=== PATIENT | male | born 1985 | race Caucasian/White ===

== ENCOUNTER 2021-04-03 11:10 | Emergency (ER) | payer OTHER ==
[~2021-04-03] VITALS: Ht 190.5 cm; Wt 105.7 kg
[2021-04-03] MEDS ORDERED: ONDANSETRON PF 4 MG/2 ML VIAL. IVP ONE (12:00)
[2021-04-03] MEDS ORDERED: MORPHINE SULFATE 4 MG/ML INJ. IVP ONE (12:00)
[2021-04-03] MEDS ORDERED: IV NORMAL SALINE 1000ML BAG 1,000 ML IV ONE (12:00)
[2021-04-03 12:24] LABS: BASO # 0.1 x10^3/uL (0.0-0.2); BASO % 1 % (0-3); EOS % 0 % (0-3); HEMATOCRIT 46.8 % (39.0-53.0); LYMPH # 1.3 x10^3/uL (1.0-4.8); LYMPH % 20 % (24-48); MEAN CORPUSCULAR HEMOGLOBIN 31 pg (25-35); MEAN CORPUSCULAR HGB CONC 34 g/dL (31-37); MEAN CORPUSCULAR VOLUME 90 fL (79-100); MONO # 0.4 x10^3/uL (0.0-1.1); MONO % 6 % (0-9); NEUT # 4.7 x10^3/uL (1.8-7.7); NEUT % 73 % (31-73); PLATELET COUNT 265 x10^3/uL (140-400); RED BLOOD COUNT 5.19 x10^6/uL (4.30-5.70); WHITE BLOOD COUNT 6.4 x10^3/uL (4.0-11.0)
[2021-04-03 12:35] LABS: CALCIUM 9.2 mg/dL (8.5-10.1); CREATININE 1.1 mg/dL (0.7-1.3); GFR 75.3; POTASSIUM 3.5 mmol/L (3.5-5.1)
[2021-04-03 12:40] LABS: ALBUMIN 4.3 g/dL (3.4-5.0); ALBUMIN/GLOBULIN RATIO 1.1 (1.0-1.7); MAGNESIUM 2.3 mg/dL (1.8-2.4); TOTAL BILIRUBIN 0.4 mg/dL (0.2-1.0); TOTAL PROTEIN 8.1 g/dL (6.4-8.2)
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
--- NOTE | 2021-04-03 14:27 | RAD ---
Single view of the chest. 04/03/2021 1:55 PM Indication: Reason: chest pain Comparison: None Findings: There is no focal consolidation. There is no pleural effusion or pneumothorax. The cardiome diastinal silhouette and pulmonary vasculature are within normal limits. No acute osseous abnormaliti es are seen. Impression: No evidence of acute cardiopulmonary process. Electronically signed by: Ronan Akins MD (04/03/2021 2:25 PM) [id number]
[2021-04-03] MEDS ORDERED: KETOROLAC 30 MG/ML VIAL. IVP ONE (14:30)
[2021-04-03 15:26] VITALS: BP 144/79
--- NOTE | 2021-04-03 18:21 | EKG ---
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
== END 2021-04-03 15:32 | disposition home or self-care (01) ==
LOC: ER 11:10
DX: R07.89 Other chest pain (principal); F41.9 Anxiety disorder, unspecified; R19.7 Diarrhea, unspecified; R50.9 Fever, unspecified; Z72.0 Tobacco use; F43.10 Post-traumatic stress disorder, unspecified; Z88.1 Allergy status to other antibiotic agents; Z88.5 Allergy status to narcotic agent
CPT/HCPCS: 36415; 71045; 80053; 83735; 83880; 84484; 85025; 93005; 96361; 96374; 96375; 99285; J1885; J2060; J2405; J7030

== ENCOUNTER 2021-06-23 06:58 | Emergency (ER) | payer OTHER ==
[~2021-06-23] VITALS: Ht 190.5 cm; Wt 120.0 kg
[2021-06-23] MEDS ORDERED: ONDANSETRON PF 4 MG/2 ML VIAL. IVP ONE (07:30)
[2021-06-23] MEDS ORDERED: KETOROLAC 30 MG/ML VIAL. IV ONE (07:30)
[2021-06-23] MEDS ORDERED: FAMOTIDINE 20 MG/2 ML VIAL IVP ONE (07:30)
[2021-06-23] MEDS ORDERED: ASPIRIN CHEWABLE 81 MG TABLET. PO ONE (07:30)
[2021-06-23 07:55] LABS: BASO # 0.1 x10^3/uL (0.0-0.2); BASO % 1 % (0-3); EOS # 0.1 x10^3/uL (0.0-0.7); EOS % 2 % (0-3); HEMATOCRIT 42.3 % (39.0-53.0); HEMOGLOBIN 14.2 g/dL (13.0-17.5); LYMPH # 1.3 x10^3/uL (1.0-4.8); LYMPH % 27 % (24-48); MEAN CORPUSCULAR HEMOGLOBIN 30 pg (25-35); MEAN CORPUSCULAR HGB CONC 34 g/dL (31-37); MEAN CORPUSCULAR VOLUME 90 fL (79-100); MONO # 0.3 x10^3/uL (0.0-1.1); MONO % 7 % (0-9); NEUT # 3.2 x10^3/uL (1.8-7.7); NEUT % 64 % (31-73); PLATELET COUNT 249 x10^3/uL (140-400); RED BLOOD COUNT 4.71 x10^6/uL (4.30-5.70); RED CELL DISTRIBUTION WIDTH 13.5 % (11.5-14.5)
[2021-06-23 08:02] LABS: CREATININE 1.1 mg/dL (0.7-1.3); GFR 75.3; POTASSIUM 4.4 mmol/L (3.5-5.1)
[2021-06-23 08:09] LABS: ALBUMIN/GLOBULIN RATIO 1.5 (1.0-1.7); MAGNESIUM 2.2 mg/dL (1.8-2.4); TOTAL BILIRUBIN 0.4 mg/dL (0.2-1.0); TOTAL PROTEIN 6.7 g/dL (6.4-8.2)
[2021-06-23 08:10] LABS: INFLUENZA A PATIENT NEGATIVE (NEGATIVE); INFLUENZA B PATIENT NEGATIVE (NEGATIVE)
--- NOTE | 2021-06-23 08:12 | RAD ---
XR CHEST 1V INDICATION: chest pain x 1 month . COMPARISON STUDY: None. FINDINGS: Lungs: Normal lung volume. No pulmonary mass or consolidation. The tracheobronchial tree and hilar st ructures are normal. Pleura: No pleural effusion or pneumothorax. Heart and Mediastinum: The cardiomediastinal silhouette is normal. The great vessels of the thorax ar e normal. Bones and Soft Tissues: The bones and soft tissues are within normal limits. IMPRESSION: No acute cardiopulmonary process. Electronically signed by: Lucas Lofton MD (06/23/2021 8:09 AM) [id number]
[2021-06-23] MEDS ORDERED: CONTRAST GIVEN. MC PRN (08:15)
[2021-06-23] MEDS ORDERED: IOHEXOL 300 MG/ML 100ML VIAL. IV ONE (08:15)
--- NOTE | 2021-06-23 08:23 | PHYS DOC ---
Past Medical History Additional Past Medical Histor: PTSD Past Surgical History: Other Additional Past Surgical Histo: left BKA Smoking Status: Former Smoker Alcohol Use: None Adult General Chief Complaint Chief Complaint: CHEST PAIN HPI HPI Patient is a 35 year old male with chest pain that started approximately 3-1/2 hours prior to arrival. Pain is in the center of his chest and on the right side of his chest. It seems to radiate through towards the right shoulder blade. He was a little short of breath initially but that is resolved. No nausea, palpitations or diaphoresis. He denies a history of hypertension, hypercholesterolemia or diabetes. Family history is positive on the father's side for heart disease. No tobacco or drug use. Patient states that he had a stress test done last week to the MS but does not have the results. Patient has had pain intermittently now for about a month. No relation to exertion, no relation to eating. Review of Systems Review of Systems Constitutional: Denies fever Eyes: Denies change in visual acuity or eye pain HENT: Denies sore throat Respiratory: Denies shortness of breath Cardiovascular: Reports chest pain GI: Denies abd pain : Denies dysuria Musculoskeletal: Denies back or extremity injury Integument: Denies rash or skin lesions Neurologic: Denies headache, focal weakness or sensory changes All other systems were reviewed and found to be within normal limits, except as documented in this note. Current Medications Current Medications Current Medications Medications (Trade) Dose Ordered Sig/Azalea Start Time Stop Time Status Last Admin Dose Admin Aspirin (Aspirin Chewable) 324 mg 1X ONCE 06/23/21 07:30 06/23/21 07:32 DC 06/23/21 07:30 324 MG Famotidine (Pepcid Vial) 20 mg 1X ONCE 06/23/21 07:30 06/23/21 07:32 DC 06/23/21 07:30 20 MG Info (CONTRAST GIVEN -- Rx MONITORING) 1 each PRN DAILY PRN 06/23/21 08:15 06/25/21 08:14 Iohexol (Omnipaque 300 Mg/ml) 75 ml 1X ONCE 06/23/21 08:15 06/23/21 08:16 DC 06/23/21 08:20 75 ML Ketorolac Tromethamine (Toradol 30mg Vial) 30 mg 1X ONCE 06/23/21 07:30 06/23/21 07:33 DC 06/23/21 07:30 30 MG Ondansetron HCl (Zofran) 4 mg 1X ONCE 06/23/21 07:30 06/23/21 07:33 DC 06/23/21 07:30 4 MG Allergies Allergies Allergies Coded Allergies Type Severity Reaction Last Updated Verified hydromorphone Allergy Severe SYNCOPY,RESPIRATORY ARREST 06/23/21 Yes erythromycin base Allergy Intermediate Rash 06/23/21 Yes Physical Exam Physical Exam Constitutional: Well developed, well nourished, no acute distress, non-toxic appearance. HENT: Normocephalic, atraumatic, bilateral external ears normal, mucosa moist, nose normal. Eyes: EOMI, conjunctiva normal, no discharge. Neck: Normal range of motion, supple, no stridor, no meningeal signs. Cardiovascular: Regular rate and rhythm Lungs & Thorax: Bilateral breath sounds clear to auscultation Abdomen: Soft, no tenderness or obvious masses Skin: Warm, dry, no erythema, no rash. Extremities: No tenderness, no cyanosis, no clubbing, ROM intact, no edema, left lower extremity below the knee amputation. Neurologic: Alert and oriented, normal motor function, normal sensory function, no focal deficits noted. Psychologic: Affect normal, judgement normal, mood normal. Current Patient Data Vital Signs Vital Signs Date Time Temp Pulse Resp B/P (MAP) Pulse Ox O2 Delivery O2 Flow Rate FiO2 06/23/21 09:31 89 17 153/86 (108) 97 Room Air 06/23/21 07:14 98.5 98.5 Lab Values Laboratory Tests Test 06/23/21 07:45 06/23/21 09:58 White Blood Count 5.0 x10^3/uL (4.0-11.0) Red Blood Count 4.71 x10^6/uL (4.30-5.70) Hemoglobin 14.2 g/dL (13.0-17.5) Hematocrit 42.3 % (39.0-53.0) Mean Corpuscular Volume 90 fL (79-100) Mean Corpuscular Hemoglobin 30 pg (25-35) Mean Corpuscular Hemoglobin Concent 34 g/dL (31-37) Red Cell Distribution Width 13.5 % (11.5-14.5) Platelet Count 249 x10^3/uL (140-400) Neutrophils (%) (Auto) 64 % (31-73) Lymphocytes (%) (Auto) 27 % (24-48) Monocytes (%) (Auto) 7 % (0-9) Eosinophils (%) (Auto) 2 % (0-3) Basophils (%) (Auto) 1 % (0-3) Neutrophils # (Auto) 3.2 x10^3/uL (1.8-7.7) Lymphocytes # (Auto) 1.3 x10^3/uL (1.0-4.8) Monocytes # (Auto) 0.3 x10^3/uL (0.0-1.1) Eosinophils # (Auto) 0.1 x10^3/uL (0.0-0.7) Basophils # (Auto) 0.1 x10^3/uL (0.0-0.2) Sodium Level 144 mmol/L (136-145) Potassium Level 4.4 mmol/L (3.5-5.1) Chloride Level 107 mmol/L (98-107) Carbon Dioxide Level 31 mmol/L (21-32) Anion Gap 6 (6-14) Blood Urea Nitrogen 10 mg/dL (8-26) Creatinine 1.1 mg/dL (0.7-1.3) Estimated GFR (Cockcroft-Gault) 75.3 BUN/Creatinine Ratio 9 (6-20) Glucose Level 105 mg/dL (70-99) H Calcium Level 9.0 mg/dL (8.5-10.1) Magnesium Level 2.2 mg/dL (1.8-2.4) Total Bilirubin 0.4 mg/dL (0.2-1.0) Aspartate Amino Transferase (AST) 10 U/L (15-37) L Alanine Aminotransferase (ALT) 28 U/L (16-63) Alkaline Phosphatase 76 U/L (46-116) Troponin I High Sensitivity 4 ng/L (4-75) 5 ng/L (4-75) Total Protein 6.7 g/dL (6.4-8.2) Albumin 4.0 g/dL (3.4-5.0) Albumin/Globulin Ratio 1.5 (1.0-1.7) Lipase 91 U/L (73-393) Influenza Type A Antigen Negative (NEGATIVE) Influenza Type B Antigen Negative (NEGATIVE) SARS-CoV-2 Antigen (Rapid) Negative (NEGATIVE) Laboratory Tests 06/23/21 07:45 Laboratory Tests 06/23/21 07:45 EKG EKG [] Interpretation Time: Twelve-lead EKG demonstrates a sinus rhythm with an overall rate of 75 bpm AR, QRS and QT corrected intervals are within normal limits. No T-segment elevation or depression. Good R wave progression, no clinically pertinent Q waves. Radiology/Procedures Radiology/Procedures [] Impressions: PATIENT: QUINTON DIAZCCOUNT: [id number]#: [id number] : 1985 LOCATION: ER AGE: 35 SEX: M EXAM STATUS: REG ER ORD. PHYSICIAN: KEITH MATHIS MD REASON: chest pain x 1 month PROCEDURE: CHEST AP ONLY XR CHEST 1V INDICATION: chest pain x 1 month . COMPARISON STUDY: None. FINDINGS: Lungs: Normal lung volume. No pulmonary mass or consolidation. The trac heobronchial tree and hilar structures are normal. Pleura: No pleural effusion or pneumothorax. Heart and Mediastinum: The cardiomediastinal silhouette is normal. The great vessels of the thorax are normal. Bones and Soft Tissues: The bones and soft tissues are within normal limits. IMPRESSION: No acute cardiopulmonary process. Electronically signed by: Michael Lofton MD (06/23/2021 8:09 AM) [id number] DICTATED and SIGNED BY: MICHAEL LOFTON MD DATE: 06/23/21 [id number] PATIENT: MAXX DIAZ ACCOUNT: [id number] : 1985 LOCATION: ER AGE: 35 SEX: M EXAM STATUS: REG ER ORD. PHYSICIAN: KEITH MATHIS MD REASON: ABDOMINAL PAIN PROCEDURE: CT ABD PELV W/ IV CONTRST ONLY PQRS Compliance Statement: One or more of the following individualized dose reduction techniques were utilized for this examination: 1. Automated exposure control 2. Adjustment of the mA and/or kV according to patient size 3. Use of iterative reconstruction technique CT ABDOMEN+PELVIS W Clinical Indication: Reason: ABDOMINAL PAIN / Spl. Instructions: OMNI 300 INJ. 75 MLS / History: Comparison: None. Technique: Helical CT imaging of the abdomen and pelvis is performed after 75 cc of Omnipaque 300 IV contrast. Oral contrast not administered. Findings: Lung bases are clear. Cardiac size normal. The liver, gallbladder, spleen, pancreas, adrenal glands, abdominal aorta, and kidneys are normal. The stomach is mostly decompressed. There is no small bowel obstruction. There is no colon wall thickening. The appendix is normal. There is no abdominal adenopathy or free fluid. The urinary bladder is nearly completely decompressed accentuating the wall thickness. There is no surrounding inflammation. The prostate and seminal vesicles are normal. No pelvic free fluid is identified. No inguinal hernia or adenopathy is seen. There are reactive endplate changes of L1/L2. Vacuum disc phenomenon L4/L5 and L5/S1. IMPRESSION: No acute abdominal or pelvic abnormality. Electronically signed by: Rogelio Olea MD (06/23/2021 8:41 AM) [id number] DICTATED and SIGNED BY: ROGELIO OLEA MD DATE: 06/23/21 [id number] Course & Med Decision Making Course & Med Decision Making Pertinent Labs and Imaging studies reviewed. (See chart for details) [] This 35-year-old male with right-sided chest pain that does radiate towards her shoulder blade at times. His work-up is negative. We got a CT of the abdomen pelvis to look at any liver or gallbladder pathology and the CT was unremarkable. Chest x-ray is negative. Lab studies including a repeat troponin are unrevealing. Patient will be discharged with prescriptions for [place] to use sparingly and Flexeril with it. Follow-up with his primary care physician in the next week or so if symptoms have not resolved, return to the emergency department they become worse, he is stable for discharge. Dragon Disclaimer Dragon Disclaimer This electronic medical record was generated, in whole or in part, using a voice recognition dictation system. Departure Departure Impression: Primary Impression: Chest pain Disposition: 01 HOME / SELF CARE / HOMELESS Condition: STABLE Referrals: UNKNOWN PCP NAME (PCP) Patient Instructions: Chest Pain (Nonspecific) Scripts Hydrocodone Bit/Acetaminophen (HYDROCODONE-APAP 5-325 ) 1 Tab Tablet 1 TAB PO PRN Q6HRS PRN for PAIN for 3 Days, #10 TAB 0 Refills Prov: KEITH MATHIS MD 06/23/21 Cyclobenzaprine Hcl (CYCLOBENZAPRINE HCL) 5 Mg Tablet 5 MG PO PRN TID PRN for PAIN, #15 TAB Prov: KEITH MATHIS MD 06/23/21 KEITH MATHIS MD Jun 23, 2021 08:23
--- NOTE | 2021-06-23 08:44 | RAD ---
PQRS Compliance Statement: One or more of the following individualized dose reduction techniques were utilized for this examinat ion: 1. Automated exposure control 2. Adjustment of the mA and/or kV according to patient size 3. Use of iterative reconstruction technique CT ABDOMEN+PELVIS W Clinical Indication: Reason: ABDOMINAL PAIN / Spl. Instructions: OMNI 300 INJ. 75 MLS / History: Comparison: None. Technique: Helical CT imaging of the abdomen and pelvis is performed after 75 cc of Omnipaque 300 IV contrast. Oral contrast not administered. Findings: Lung bases are clear. Cardiac size normal. The liver, gallbladder, spleen, pancreas, adrenal glands, abdominal aorta, and kidneys are normal. The stomach is mostly decompressed. There is no small bowel obstruction. There is no colon wall thick ening. The appendix is normal. There is no abdominal adenopathy or free fluid. The urinary bladder is nearly completely decompressed accentuating the wall thickness. There is no bunch rrounding inflammation. The prostate and seminal vesicles are normal. No pelvic free fluid is identif ied. No inguinal hernia or adenopathy is seen. There are reactive endplate changes of L1/L2. Vacuum disc phenomenon L4/L5 and L5/S1. IMPRESSION: No acute abdominal or pelvic abnormality. Electronically signed by: Rogelio Olea MD (06/23/2021 8:41 AM) [id number]
[2021-06-23] MEDS ORDERED: CYCL5TAB PO (11:01)
[2021-06-23] MEDS ORDERED: HYDR-2761 PO (11:01)
[2021-06-23 11:13] VITALS: BP 119/70
--- NOTE | 2021-06-23 17:27 | EKG ---
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
== END 2021-06-23 11:17 | disposition home or self-care (01) ==
LOC: ER 06:58
DX: R07.89 Other chest pain (principal); R06.02 Shortness of breath; Z20.822 Contact with and (suspected) exposure to COVID-19; M25.511 Pain in right shoulder; F43.10 Post-traumatic stress disorder, unspecified; Z87.891 Personal history of nicotine dependence; Z88.1 Allergy status to other antibiotic agents; Z88.5 Allergy status to narcotic agent
CPT/HCPCS: 36415; 71045; 74177; 80053; 83690; 83735; 84484; 85025; 87428; 93005; 96374; 96375; 99285; J1885; J2405; J3490; Q9967